=== PATIENT | male | born 1980 | race Caucasian/White ===

== ENCOUNTER 2019-02-24 20:20 | Emergency (ER) | payer MEDICARE, MEDICAID ==
[~2019-02-24] VITALS: Ht 177.8 cm; Wt 74.8 kg
[2019-02-24 20:48] LABS: *BILIRUBIN,URIN NEGATIVE (NEGATIVE); *BLOOD, URINE NEGATIVE (NEGATIVE); *CLARITY,URINE CLEAR (CLEAR); *COLOR,URINE YELLOW (YELLOW); *KETONES,URINE NEGATIVE (NEGATIVE); *UROBILINOGEN,URINE 0.2 E.U./dl (NORMAL); LEUKOCYTE ESTERASE ,URINE NEGATIVE (NEGATIVE); NITRITE, URINE NEGATIVE (NEGATIVE); UGLUCOSE NEGATIVE (NEGATIVE)
--- NOTE | 2019-02-24 20:50 | NUR ---
MD AT BEDSIDE FOR HX AND PHYSICAL PROVIDED PRIVACY UPON EXAM PT REPORTS 4/10 TESTICULAR PAIN AMBULATORY W/ STABLE GAIT ABLE TO VOID FREELY TO PROVIDE URINE SAMPLE
[2019-02-24] MEDS ORDERED: ONDANSETRON ODT 4 MG TAB.RAPDIS ONE (20:58)
[2019-02-24] MEDS ORDERED: OXYCODONE/APAP 5-325 MG TABLET ONE (20:58)
[2019-02-24] MEDS ORDERED: ONDANSETRON ODT 4 MG TAB.RAPDIS SL ONE (21:00)
[2019-02-24] MEDS ORDERED: ACETAMINOPHEN ES 500 MG TABLET PO ONE (21:00)
[2019-02-24] MEDS ORDERED: OXYCODONE/APAP 5-325 MG TABLET PO ONE (21:00)
--- NOTE | 2019-02-24 21:00 | NUR ---
MANAGER CASE MANAGEMENT ON THE WAY
[2019-02-24] MEDS ORDERED: ACETAMINOPHEN ES 500 MG TABLET ONE (21:04)
--- NOTE | 2019-02-24 21:50 | NUR ---
YORDAN FERNANDES AT BEDSIDE
[2019-02-24] MEDS ORDERED: LEVOFLOXACIN 500 MG TABLET PO ONE (22:15)
[2019-02-24] MEDS ORDERED: CEFTRIAXONE 500 MG VIAL IM ONE (22:15)
[2019-02-24] MEDS ORDERED: LEVOFLOXACIN 500 MG TABLET ONE (22:19)
[2019-02-24] MEDS ORDERED: CEFTRIAXONE 500 MG VIAL ONE (22:19)
--- NOTE | 2019-02-24 22:22 | NUR ---
ABLE TO TOLERATE MEDS ORDERED
--- NOTE | 2019-02-24 22:36 | NUR ---
Patient discharged to home in stable conditon. Written and verbal after care instructions given. Patient verbalizes understanding of instructions. AMBULATORY W/ STABLE GAIT, ALL BELONGINGS W/ PT
[2019-02-24 22:37] VITALS: BP 112/74
== END 2019-02-24 22:37 | disposition home or self-care (01) ==
LOC: ER 20:27
DX: N50.812 Left testicular pain (principal); K59.00 Constipation, unspecified; F12.10 Cannabis abuse, uncomplicated
CPT/HCPCS: 76870; 81001; 96372; 99284; J0696; A4663; A9150; Q0162

== ENCOUNTER 2021-04-04 13:04 | Emergency (ER) | payer MEDICARE, OTHER ==
[~2021-04-04] VITALS: Ht 175.3 cm; Wt 74.8 kg
[2021-04-04 13:36] LABS: HEMATOCRIT 36.5 % (36.7-47.1); MEAN CORPUSCULAR HEMOGLOBIN 19.5 uug (23.8-33.4); MEAN CORPUSCULAR VOLUME 61.5 fL (73.0-96.2); PLATELET COUNT (AUTO) 168 K/uL (152-348)
[2021-04-04 13:37] LABS: *BILIRUBIN,URIN NEGATIVE (NEGATIVE); *BLOOD, URINE NEGATIVE (NEGATIVE); *CLARITY,URINE SLIGHTLY CLOUDY (CLEAR); *COLOR,URINE LIGHT YELLOW (YELLOW); *KETONES,URINE NEGATIVE (NEGATIVE); *UROBILINOGEN,URINE 0.2 E.U./dl (NORMAL); LEUKOCYTE ESTERASE ,URINE NEGATIVE (NEGATIVE); NITRITE, URINE NEGATIVE (NEGATIVE); PH,URINE 5.5 (5.0-8.0); UGLUCOSE NEGATIVE (NEGATIVE)
[2021-04-04 13:44] LABS: BILIRUBIN,DIRECT 0.1 mg/dL (0.0-0.2); BILIRUBIN,TOTAL 0.5 mg/dL (0.2-1.0); CREATININE 0.8 mg/dL (0.6-1.3); POTASSIUM 4.4 mmol/L (3.5-5.1); TOTAL PROTEIN, SERUM 7.7 g/dL (6.4-8.2)
[2021-04-04] MEDS ORDERED: IV NS 1000 ML 1,000 ML IV ONE (14:00)
--- NOTE | 2021-04-04 14:46 | NUR ---
PT IS IN ROOM #2B. DR DELGADO EVALUATED THE PT. PT RFUSED IV INSERTION AND IV NS 0.9% INFUSION. DR DELGADO NOYIFIED.
[2021-04-04 16:09] LABS: *OCCULT BLOOD STOOL NEGATIVE (NEGATIVE)
--- NOTE | 2021-04-04 16:28 | NUR ---
PT WAS D/C'd TO HOME. D/C INSTRUCTIONS GIVEN TO THE PT BY DR DELGADO.
[2021-04-04 16:30] VITALS: BP 131/70
== END 2021-04-04 16:45 | disposition home or self-care (01) ==
LOC: ER 13:07
DX: R53.1 Weakness (principal); T14.90XS Injury, unspecified, sequela; X58.XXXS Exposure to other specified factors, sequela; Z98.1 Arthrodesis status
CPT/HCPCS: 36415; 83690; 85025; J7030

== ENCOUNTER 2024-12-22 19:43 | Emergency (ER) | payer MEDICARE, OTHER ==
[~2024-12-22] VITALS: Ht 177.8 cm; Wt 74.8 kg
[2024-12-22 19:49] VITALS: BP 122/70
[2024-12-22] MEDS ORDERED: LIDOCAINE HCL 1% 20 ML VIAL ONE (20:03)
[2024-12-22] MEDS ORDERED: TDAP DIPH,PERTUSS,TET VAC/PF 0.5 ML DISP.SYRIN IM ONE (20:07)
[2024-12-22] MEDS: TDAP DIPH,PERTUSS,TET VAC/PF 0.5 ML DISP.SYRIN IM ONE (20:13)
[2024-12-22] MEDS: LIDOCAINE HCL 1% 20 ML VIAL TP ONE (20:13)
[2024-12-22] MEDS ORDERED: NEOMY/BACITRA/POLYMYXIN B OINT UD PACKET TP ONE (21:17)
[2024-12-22] MEDS ORDERED: HYDR-3972 PO (21:23)
[2024-12-22] MEDS: NEOMY/BACITRA/POLYMYXIN B OINT UD PACKET TP ONE (21:30)
[2024-12-22] MEDS ORDERED: BACI500P4 TP (21:31)
[2024-12-22 21:43] VITALS: BP 122/70; TEMP 98; O2SAT 99
== END 2024-12-22 21:43 | disposition home or self-care (01) ==
LOC: ER 19:49
DX: S61.012A Laceration without foreign body of left thumb without damage to nail, initial encounter (principal); Z87.39 Personal history of other diseases of the musculoskeletal system and connective tissue; Z60.2 Problems related to living alone; W18.39XA Other fall on same level, initial encounter; Y93.89 Activity, other specified; Y92.89 Other specified places as the place of occurrence of the external cause; Y99.8 Other external cause status
CPT/HCPCS: 12001; 73140; 90471; 90715; 99283; J3490; A4606; A4663